=== PATIENT | female | born 1965 | race Caucasian/White ===

== ENCOUNTER 2016-11-23 05:30 | Inpatient (IN) ==
[2016-11-23] MEDS ORDERED: LR 1,000 ML IV SCH (05:40)
[2016-11-23] MEDS ORDERED: ACETAMINOPHEN 500 MG TABLET PO ONE (06:00)
[2016-11-23] MEDS ORDERED: NOZIN NASAL SWAB NAS ONE ×2 (06:00→13:17)
[2016-11-23] MEDS ORDERED: FAMOTIDINE PB 20 MG/50 ML BAG IV ONE (06:00)
[2016-11-23] MEDS ORDERED: METOCLOPRAMIDE 10mg/2ml INJECTION IVP ONE (06:00)
[2016-11-23] MEDS ORDERED: DEXAMETHASONE 4 MG/ML INJECTION IVP ONE (06:00)
[2016-11-23] MEDS ORDERED: MELOXICAM 15 MG TABLET PO ONE (06:00)
[2016-11-23] MEDS ORDERED: ONDANSETRON 4 MG/2 ML INJECTION IVP ONE (06:00)
[2016-11-23] MEDS ORDERED: LIDOCAINE 1% (10mg/ml) 10mL MDV SQ ONE (06:00)
[2016-11-23] MEDS ORDERED: VANCOMYCIN 1,000 MG INJECTION ONE (06:13)
[2016-11-23 06:17] VITALS: BMI 38.8
--- NOTE | 2016-11-23 06:37 | Anesthesia Preoperative Report ---
Anesthesia Preoperative Record - Date and Time Date: 11/23/16 Preoperative Diagnosis: Bilateral Primary Knee OA M17.0 NPO Since Date: 11/23/16 NPO Since Time: 00:00 Allergies/Adverse Reactions: Allergies Allergy/AdvReac Type Severity Reaction Status Date / Time Sulfa (Sulfonamide Allergy Severe RASH/HIVES Verified 11/23/16 05:46 Antibiotics) - Vital Signs Vital Signs: Temperature 98.3 F 11/23/16 06:15 Pulse Rate 74 11/23/16 06:15 Respiratory Rate 16 11/23/16 06:15 Blood Pressure 120/69 11/23/16 06:15 Pulse Oximetry 94 11/23/16 06:15 Oxygen Delivery Method Room Air Height and Weight: Height 1.65 m Weight 105.8 kg Body Mass Index 38.8 - Medications Inpatient Medications: Current Medications Epinephrine HCl 0.25 mg/Bupivacaine HCl 30 ml/Morphine Sulfate 15 mg/Ketorolac Tromethamine 60 mg/Sodium Chloride 65.25 mls @ 0 mls/hr OPSITE INTRAOP ONE; Per Protocol PRN Reason: Protocol Stop: 11/23/16 08:01 Tranexamic Acid 1,000 mg/ (Sodium Chloride) 110 mls @ 660 mls/hr IV INTRAOP ONE Stop: 11/23/16 07:09 Lactated Ringer's (Lactated Ringers) 1,000 mls @ 50 mls/hr IV .Q20H CRUZ Last Admin: 11/23/16 06:07 Dose: 50 mls/hr Sodium Chloride (Iv Flush) 10 - 80 ml IVF PRN PRN PRN Reason: [place] Home Medications: Home Medications Medication Instructions Recorded Confirmed Type ARIPiprazole [Abilify] 1 tab PO DAILY #90 04/06/16 10/27/16 History Prazosin HCl 1 - 2 tab PO HS PRN #60 04/06/16 11/23/16 History hydrOXYzine pamoate [Vistaril] 1 - 2 tab PO Q8H PRN #180 04/06/16 10/27/16 History ClonazePAM [Klonopin] 1 mg PO HS PRN 10/18/16 10/27/16 History Escitalopram [Lexapro] 20 mg PO DAILY 10/18/16 11/23/16 History Meloxicam [Mobic] 15 mg PO DAILY 10/18/16 11/22/16 History buPROPion HCl [Wellbutrin Xl] 300 mg PO DAILY 10/18/16 11/23/16 History Acetaminophen Sr [Tylenol 1,300 mg PO Q8HR PRN 10/27/16 11/23/16 History Arthritis] tramadol 50 mg tablet 50 mg PO Q6H PRN 10/27/16 11/22/16 History ALPRAZolam [Alprazolam ER] 0.5 mg PO Q1-2HR MDD 2 11/22/16 11/23/16 History Is Patient on Beta Almita?: No - Medical History Gastrointestional: Reports: Morbid Obesity - Surgical History GI Surgery/Treatments: Reports: Colonoscopy (Hx polyps) Musculoskeletal Surgery/Tx: Reports: Knee Arthroscopy (LEFT KNEE) Reproductive Surgery/Treatment: Reports: Hysterectomy, Hysteroscopy, Laparoscopy (ovarian cystectomy) Anesthesia Reactions: None Hx Family Anesthesia Reaction: No History of Motion Sickness: No - Social History Smoking Status: Current some day smoker Hx Chewing Tobacco Use: No Second Hand Exposure: No - Physical Exam Respiratory Exam: Present: lungs clear, bilateral breath sounds equal Cardiovascular Exam: Present: regular rate and rhythm - Airway Assessment Mallampati Score: II Neck Extension: fair Overall Assessment: no airway concerns - ASA ASA Score: 2 - Plan Anesthesia: General TIVA, General Inhalation Gases, Regional Block, Neuroaxial Regional/Trunk Block: Epidural - Discussion Discussion: Discussed risks/options/alternatives of anesthesia and questions answered. Patient consents. Nursing pain assessment noted. Present for Discussion: family member Attestation Statement: Prior to the delivery of any anesthetic medication, I examined the patient, developed the plan, obtained the patient's consent and discussed the risk and benefits of the procedure with the patient/guardian. - Additional Information Seen by Anesthesia: Yes
[2016-11-23] MEDS ORDERED: PROPOFOL 0 MG/0 ML VIAL IV ONE (06:43)
[2016-11-23] MEDS ORDERED: KETAMINE 500 MG/10 ML INJECTION ONE (06:43)
[2016-11-23] MEDS ORDERED: LIDOCAINE 2%/EPI 1:200,000 20ml SDV PF ONE ×2 (07:26→10:30)
[2016-11-23] MEDS ORDERED: MIDAZOLAM 2mg/2ml INJECTION ONE (07:27)
[2016-11-23] MEDS: TRANEXAMIC ACID 1,000 MG in NS 100 ML IV ONE ×4 (07:30→16:01)
[2016-11-23] MEDS: CEFAZOLIN 1 G INJECTION IVP ONE ×2 (07:30→15:32)
[2016-11-23] MEDS ORDERED: PROPOFOL 500 MG/50 ML VIAL IV ONE (08:31)
[2016-11-23] MEDS ORDERED: SALINE FLUSH 10ml SYRINGE IVF PRN (08:40)
[2016-11-23] MEDS ORDERED: PROPOFOL IV ONE (09:08)
[2016-11-23] MEDS ORDERED: PHENYLEPHRINE INJ 10 MG/ML VIAL IV ONE (09:39)
[2016-11-23] MEDS ORDERED: ROPIVACAINE 0.5% (5mg/ml) 30ml INJ ONE (10:30)
[2016-11-23] MEDS: EPINEPHrine 0.25 MG, BUPIVACAINE 0.25% PF 30 ML, MORPHINE SULFATE 15 MG, KETOROLAC INJ ... OPSITE ONE ×2 (10:35→16:02)
[2016-11-23] MEDS ORDERED: VANCOMYCIN 1,000 MG INJECTION IAR ONE (10:39)
[2016-11-23] MEDS ORDERED: PROPOFOL 20 ML ONE (10:54)
--- NOTE | 2016-11-23 11:00 | Operative Note ---
- Procedure Date of Admission: 11/23/16 Side: bilateral Preoperative Diagnosis: knee primary DJD Postoperative Diagnosis: Same as preoperative diagnosis. Operation: total knee arthroplasty (bilateral) Surgeon: Martha Raygoza MD Edge Kitter: ISABELL Bello Complications: None. Regional/Trunk Block: Epidural Peripheral Nerve Block: Saphenous-Right, Saphenous-Left Estimated Blood Loss: See Anesthesia Record. Fluids: Please see Anesthesia Record. Description of Procedure: Mrs. Serrano in both of her knees were identified and marked in the preoperative holding area. She was brought back to the operating suite. Epidural was placed in the preoperative holding area. Both lower extremity were prepped and draped in my normal sterile fashion. Timeout was performed. Both knees had a fixed varus deformity. We started with the left knee. An anterior midline incision followed by sub-vastus arthrotomy was performed. The tourniquet was not used until cementing. Hemostasis was obtained with electrocautery. Should severe disease in the medial and patellofemoral compartments. The patella was resurfaced to a size 32. A distal femoral osteotomy was then performed in 5 of valgus using intramedullary guide. The femur was sized at a for and rotation set using the epicondylar axis. Distal femoral cuts were performed with a 4-in-1 cutting block. She had large osteophytes which were removed. A proximal tibial cut was then made perpendicular to its long axis using an extramedullary guide. At this point remaining meniscus and osteophytes were removed and joint cocktail was injected throughout soft tissue. Trial components were placed with a 9 mm spacer. After larger medial release this allowed for full extension and flexion and the patella tracked well. The leg was then exsanguinated and the tourniquet inflated to 250 mmHg. The tibia was then stamped at a size 3 at the proper rotation. The bone was then prepared for cementing and [place] [employer] components were cemented into place and allowed to cure in extension. X3 Shelly was used. The tourniquet was then let down and hemostasis obtained with electrocautery. Betadine solution was used during the curing period for 3 minutes. 1 g of vancomycin powder was placed into the joint before the capsulotomy was repaired with #1 Vicryl. The subcutaneous tissue and skin with 2 -0 Vicryl and Monocryl. Dermabond was used on the skin. We then moved to the right knee. An anterior midline incision followed by medial parapatellar arthrotomy was performed. The tourniquet was not used until cementing. Hemostasis was obtained with electrocautery. The patella was resurfaced to a size 32. Again she had severe disease in the medial and patellofemoral compartments. Again she had large osteophyte formation around the femur medially as well as laterally and on the patella. A distal femoral osteotomy was then performed in 5 of valgus using intramedullary guide. The femur was sized at a 4 and rotation set using the epicondylar axis. Distal femoral cuts were performed with a 4-in-1 cutting block. A proximal tibial cut was then made perpendicular to its long axis using an extramedullary guide. At this point remaining meniscus and osteophytes were removed and joint cocktail was injected throughout soft tissue. Trial components were placed with a 9 mm spacer. This allowed for full extension and flexion and the patella tracked well. The leg was then exsanguinated and the tourniquet inflated to 250 mmHg. The tibia was then stamped at a size 3 at the proper rotation. The bone was then prepared for cementing and [place] [employer] components were cemented into place and allowed to cure in extension. The tourniquet was then let down and hemostasis obtained with electrocautery. Betadine solution was used during the curing period for 3 minutes. 1 g of vancomycin powder was placed into the joint before the capsulotomy was repaired with #1 Vicryl. I then left my home based assistant close the subcutaneous tissue and skin with 2-0 Vicryl and Monocryl. Dermabond was used on the skin. The drapes were then removed and she was taken to recovery room under the care of anesthesia.
[2016-11-23] MEDS: HYDROMORPHONE 2 MG/ML INJECTION IVP PRN ×2 (11:35→11:50)
--- NOTE | 2016-11-23 11:45 | Anesthesia Procedure Note ---
Peripheral Nerve Blockade - Procedure Physician: Bao Raygoza MD Date: 11/23/16 Discussion: Discussed risks/options/alternatives of anesthesia and questions answered. Patient consents. Nursing pain assessment noted. Block Start: 11:30 Block Stop: 11:40 Blocked Employed: Adductor Canal, Single Injection Indication: Post-Operative Pain Approach: Bilateral Sides Confirmed Position: Supine Patient: Consent, Risks/Benefits Discussed, Informed, Post Block Act. Discussed IV Sedation: No (post op) Initial Vital Signs: Temperature 98.3 F 11/23/16 06:15 Temperature Source Oral 11/23/16 06:15 Pulse Rate 78 11/23/16 06:15 Respiratory Rate 16 11/23/16 06:15 Blood Pressure 120/69 11/23/16 06:15 Blood Pressure Mean 86 11/23/16 06:15 Blood Pressure Position Sitting 11/23/16 06:15 Pulse Oximetry 94 11/23/16 06:15 Oxygen Delivery Method 11/23/16 06:15 Post Vital Signs: Temperature 98.3 F 11/23/16 06:15 Pulse Rate 74 11/23/16 06:15 Respiratory Rate 16 11/23/16 06:15 Blood Pressure 120/69 11/23/16 06:15 Pulse Oximetry 94 11/23/16 06:15 Oxygen Delivery Method Room Air Ultrasound Used?: Yes - Nerve Simulator Muscle Response: No Paresthesia/Pain: None - Injectate Ropivacaine (%): 0.5 Ropivacaine (mL): 15 (total 30 ml, given 15 ml per side) Was Epi 1:200,000 Used?: No Injection: Injection made incrementally with constant monitoring and aspiration every ml
--- NOTE | 2016-11-23 12:06 | Anesthesia Postoperative Note ---
- Date and Time Date: 11/23/16 Time: 12:02 - Status Patient Participated in Evaluation: Patient Participated in Person Vital Signs: Temperature 98.3 F 11/23/16 06:15 Pulse Rate 74 11/23/16 06:15 Respiratory Rate 16 11/23/16 06:15 Blood Pressure 120/69 11/23/16 06:15 Pulse Oximetry 94 11/23/16 06:15 Oxygen Delivery Method Room Air Respiratory Function: Airway Patent, Regular Respirations Cardiovascular Function: Regular Pulse Mental Status: Alert and Oriented Pain Intensity: 6 (treated with iv pain med) Hydration: IV Infusing Complications During Recover: None Apparent Post Anesthesia Care Notes: epidural removed, tip intact. Band aid applied, tolerated well. Noelle Cuadra CRNA - Follow-Up Instructions Instructions: Per Surgeon
--- NOTE | 2016-11-23 12:23 | History & Physical Update ---
- History and Physical Update Date: 11/23/16 Update: I evaluated this patient and found no changes in the history and clinical exam findings. The treatment plan and recommendations are also unchanged from the previous documentation.
--- NOTE | 2016-11-23 12:43 | XRay Report ---
Indication: postoperative image PROCEDURE: XR knee RT 2V: Encounter: Initial Comparison: None Findings: Postoperative changes of right total knee replacement are seen. There is expected postoperative subcutaneous gas. No evidence of hardware failure or acute fracture. No retained radiopaque surgical instruments or sponges. Overlying material causing artifact. Impression: New right total knee prosthesis without evidence of immediate complication. .
--- NOTE | 2016-11-23 12:43 | XRay Report ---
Indication: postoperative image PROCEDURE: XR knee LT 2V: Encounter: Initial Comparison: None Findings: Postoperative changes of left total knee replacement are seen. There is expected postoperative subcutaneous gas. No evidence of hardware failure or acute fracture. No retained radiopaque surgical instruments or sponges. Overlying material causing artifact. Impression: New left total knee prosthesis without evidence of immediate complication. .
[2016-11-23] MEDS ORDERED: DiphenhydrAMINE 50 MG/ML INJECTION IVP PRN (13:17)
[2016-11-23] MEDS ORDERED: DiphenhydrAMINE 25 MG CAPSULE PO PRN (13:17)
[2016-11-23] MEDS ORDERED: BuPROPion XL 300mg (24HR) TABLET PO SCH (13:17)
[2016-11-23] MEDS ORDERED: ESCITALOPRAM 20 MG TABLET PO SCH (13:17)
[2016-11-23] MEDS ORDERED: ASPIRIN *EC* 325 MG TABLET PO SCH (13:17)
[2016-11-23] MEDS ORDERED: ONDANSETRON 4 MG/2 ML INJECTION IVP PRN (13:17)
[2016-11-23] MEDS ORDERED: DOCUSATE SODIUM 100 MG CAPSULE PO SCH (13:17)
[2016-11-23] MEDS ORDERED: MELOXICAM 15 MG TABLET PO SCH (13:17)
[2016-11-23] MEDS ORDERED: POLYETHYL GLYCOL 3350 17gm PACKET PO SCH (13:17)
[2016-11-23] MEDS ORDERED: ClonazePAM 1 MG TABLET PO PRN ×2 (13:17→22:00)
[2016-11-23] MEDS: ACETAMINOPHEN 325 MG TABLET PO SCH ×3 (13:34→21:06)
[2016-11-23] MEDS: Oxycodone *IR* 5 MG TABLET PO PRN ×2 (13:34→21:07)
[2016-11-23] MEDS: NS 1,000 ML IV SCH (13:35)
[2016-11-23] MEDS: CEFAZOLIN 2 G in NS 100 ML IV SCH (16:13)
[2016-11-23] MEDS: NOZIN NASAL SWAB NAS SCH ×2 (16:13→21:05)
[2016-11-23] MEDS: ARIPiprazole 5 MG TABLET PO SCH (16:16)
[2016-11-23] MEDS: DOCUSATE SODIUM 100 MG CAPSULE PO SCH (21:06)
[2016-11-23] MEDS: ASPIRIN *EC* 325 MG TABLET PO SCH (21:06)
[2016-11-23] MEDS: SENNOSIDES 8.6 MG TABLET PO SCH (21:06)
[2016-11-24] MEDS: Oxycodone *IR* 5 MG TABLET PO PRN ×6 (00:07→23:01)
[2016-11-24] MEDS: CEFAZOLIN 2 G in NS 100 ML IV SCH (00:07)
[2016-11-24] MEDS: LORazepam 1 MG TABLET PO PRN ×2 (02:19→17:40)
[2016-11-24] MEDS: NS 1,000 ML IV SCH ×2 (04:35→19:33)
[2016-11-24] MEDS: NOZIN NASAL SWAB NAS SCH ×3 (06:40→21:34)
[2016-11-24] MEDS: HYDROMORPHONE 2 MG/ML INJECTION IVP PRN ×3 (07:10→11:56)
[2016-11-24] MEDS ORDERED: SENNOSIDES 8.6 MG TABLET PO PRN (07:39)
--- NOTE | 2016-11-24 08:20 | Orthopedic Progress Note ---
Date: Subjective/Severity of Illness: Petty is doing fairly well. Painful as expected. Most of her pain in in the thighs. She got some IV dilaudid this AM. She has been up with good tolerance. No CV or Resp complaints. The right knee drained some and Mepilex was changed. Orthopedic Objective PO Vital signs: Temperature 96.9 F 11/24/16 04:53 Pulse Rate 84 11/24/16 04:53 Respiratory Rate 16 11/24/16 04:53 Blood Pressure 115/69 11/24/16 04:53 Pulse Oximetry 95 11/24/16 04:53 Oxygen Delivery Method Room Air Oxygen Flow Rate 2 Height and Weight: Height 5 ft 5 in Weight 233 lb 3.985 oz Body Mass Index 38.8 - Constitutional General Appearance: Present: alert, no acute distress - Respiratory Exam Present: non-labored - Extremities Exam Extremities: Present: pulses intact. Absent: calf tenderness - Surgical Site Incision: Mepilex dressing intact, bloody drainage present (Mainly on the right knee. Small amount on the left.) - Neurological Exam Present: no deficits - Psychiatric Exam Present: alert, normal affect - Labs Result Diagrams: 11/24/16 04:01 11/24/16 04:01 Abnormal lab results 11/24/16 11/24/16 Range/Units 04:01 04:01 WBC 15.8 H (4.5-11.0) T/MM3 RBC 2.95 L (4.00-5.20) M/MM3 Hgb 9.0 L (12-16) GM/DL Hct 28.5 L (36-46) % BUN 19.0 H (7-17) MG/DL Glucose 114 H (65-110) MG/DL Calcium 8.2 L (8.4-10.2) MG/DL H & H 11/24/16 Range/Units 04:01 Hgb 9.0 L (12-16) GM/DL Hct 28.5 L (36-46) % Orthopedic Assessment and Plan (1) Primary osteoarthritis of both knees Status: Acute Assessment and Plan: Current anti-coagulation protocol for VTE prophylaxis. SCD's. PT/OT services to improve independent function. Discharge Planning per Case Management. Change dressing before discharge. I will reevaluate her for discharge later today. Hospital Course Summary Disclaimer: The visit summary below is not to be considered part of the above Progress Note.
[2016-11-24] MEDS: ARIPiprazole 5 MG TABLET PO SCH (08:44)
[2016-11-24] MEDS: BuPROPion XL 300mg (24HR) TABLET PO SCH (08:45)
[2016-11-24] MEDS: ACETAMINOPHEN 325 MG TABLET PO SCH ×4 (08:45→21:33)
[2016-11-24] MEDS: DOCUSATE SODIUM 100 MG CAPSULE PO SCH ×2 (08:45→21:34)
[2016-11-24] MEDS: ESCITALOPRAM 20 MG TABLET PO SCH (08:45)
[2016-11-24] MEDS: ASPIRIN *EC* 325 MG TABLET PO SCH ×2 (08:46→21:35)
[2016-11-24] MEDS: MELOXICAM 15 MG TABLET PO SCH (08:46)
[2016-11-24] MEDS: POLYETHYL GLYCOL 3350 17gm PACKET PO SCH (09:06)
[2016-11-24] MEDS ORDERED: MORPHINE SULFATE 4 MG SYRINGE IVP PRN (14:18)
[2016-11-24] MEDS: MORPHINE SULFATE 10 MG SYRINGE IVP PRN ×4 (17:40→23:02)
[2016-11-24] MEDS: SENNOSIDES 8.6 MG TABLET PO SCH (21:34)
[2016-11-25] MEDS: MORPHINE SULFATE 10 MG SYRINGE IVP PRN ×2 (01:32→07:07)
[2016-11-25] MEDS: Oxycodone *IR* 5 MG TABLET PO PRN ×3 (05:55→17:25)
[2016-11-25] MEDS: NS 1,000 ML IV SCH ×2 (08:40→19:49)
[2016-11-25] MEDS: NOZIN NASAL SWAB NAS SCH ×3 (08:40→22:17)
[2016-11-25] MEDS: BuPROPion XL 300mg (24HR) TABLET PO SCH (08:56)
[2016-11-25] MEDS: POLYETHYL GLYCOL 3350 17gm PACKET PO SCH (08:56)
[2016-11-25] MEDS: ARIPiprazole 5 MG TABLET PO SCH (08:56)
[2016-11-25] MEDS: DOCUSATE SODIUM 100 MG CAPSULE PO SCH ×2 (08:57→22:17)
[2016-11-25] MEDS: ESCITALOPRAM 20 MG TABLET PO SCH (08:57)
[2016-11-25] MEDS: MELOXICAM 15 MG TABLET PO SCH (08:57)
[2016-11-25] MEDS: ACETAMINOPHEN 325 MG TABLET PO SCH ×4 (08:57→22:16)
[2016-11-25] MEDS: ASPIRIN *EC* 325 MG TABLET PO SCH ×2 (08:57→22:16)
[2016-11-25] MEDS: LORazepam 1 MG TABLET PO PRN (14:37)
--- NOTE | 2016-11-25 16:27 | Orthopedic Progress Note ---
Date: Subjective/Severity of Illness: Petty is still having quite a bit of pain today. HR is elevated but she has no SOA, cough or dyspnea. She has not needed any Oxygen. HR elevation may be from low hgb / volume. She is not lightheaded or dizzy. Mobility has gone well. Orthopedic Objective PO Vital signs: Temperature 99.1 F 11/25/16 15:00 Pulse Rate 112 H 11/25/16 15:00 Respiratory Rate 18 11/25/16 15:00 Blood Pressure 110/60 11/25/16 15:00 Pulse Oximetry 93 11/25/16 15:00 Oxygen Delivery Method Room Air Oxygen Flow Rate 1 Height and Weight: Height 5 ft 5 in Weight 250 lb 0.067 oz Body Mass Index 38.8 - Constitutional General Appearance: Present: alert, no acute distress - Respiratory Exam Present: non-labored - Extremities Exam Extremities: Present: pulses intact. Absent: calf tenderness - Surgical Site Incision: Mepilex dressing intact - Neurological Exam Present: no deficits - Psychiatric Exam Present: alert, normal affect - Labs Result Diagrams: 11/25/16 04:14 11/25/16 04:14 Abnormal lab results 11/25/16 11/25/16 Range/Units 04:14 04:14 WBC 11.3 H (4.5-11.0) T/MM3 RBC 2.84 L (4.00-5.20) M/MM3 Hgb 8.7 L (12-16) GM/DL Hct 27.6 L (36-46) % Calcium 8.3 L (8.4-10.2) MG/DL H & H 11/24/16 11/25/16 Range/Units 04:01 04:14 Hgb 9.0 L 8.7 L (12-16) GM/DL Hct 28.5 L 27.6 L (36-46) % Orthopedic Assessment and Plan (1) Primary osteoarthritis of both knees Status: Acute Assessment and Plan: Will give some IV fluids for tachycardia. IV Toradol for added pain control. Hold Mobic since we are adding Toradol. Cont other meds for pain control Cont rehab. ASA for DVT coverage. Monitor labs. Hospital Course Summary Disclaimer: The visit summary below is not to be considered part of the above Progress Note.
[2016-11-25] MEDS: KETOROLAC 30 MG/ML INJECTION IVP PRN (18:39)
[2016-11-25] MEDS ORDERED: BISACODYL 10 MG SUPPOSITORY RECTALLY SCH (20:00)
[2016-11-25] MEDS: SENNOSIDES 8.6 MG TABLET PO SCH (22:16)
[2016-11-26 04:21] VITALS: RESP 16
[2016-11-26] MEDS: Oxycodone *IR* 5 MG TABLET PO PRN ×3 (04:55→15:57)
[2016-11-26] MEDS: NOZIN NASAL SWAB NAS SCH ×2 (05:51→14:00)
[2016-11-26] MEDS: BuPROPion XL 300mg (24HR) TABLET PO SCH (08:19)
[2016-11-26] MEDS: POLYETHYL GLYCOL 3350 17gm PACKET PO SCH (08:19)
[2016-11-26] MEDS: ARIPiprazole 5 MG TABLET PO SCH (08:19)
[2016-11-26] MEDS: ESCITALOPRAM 20 MG TABLET PO SCH (08:19)
[2016-11-26] MEDS: ASPIRIN *EC* 325 MG TABLET PO SCH (08:20)
[2016-11-26] MEDS: ACETAMINOPHEN 325 MG TABLET PO SCH ×2 (08:20→13:33)
[2016-11-26] MEDS: DOCUSATE SODIUM 100 MG CAPSULE PO SCH (08:20)
[2016-11-26] MEDS ORDERED: SALINE FLUSH 10ml SYRINGE ONE (08:33)
[2016-11-26] MEDS ORDERED: NS 100 ML ONE (08:33)
[2016-11-26] MEDS ORDERED: IOHEXOL 350mg/ml 100ml INJECTION ONE (08:33)
[2016-11-26] MEDS: KETOROLAC 30 MG/ML INJECTION IVP PRN (09:14)
--- NOTE | 2016-11-26 09:24 | CT Scan Report ---
Indication: Post op bilat TKA, Tachycardia, R/O PE. PROCEDURE: CT angio pulm emboli: Encounter: Initial Comparison: None Technique: Axial CT pulmonary angiographic phase images were performed through the chest after the administration of intravenous contrast. Coronal and Sagittal MIP reconstructed images were created and reviewed. Automated Exposure Control and Iterative Reconstruction dose reducing techniques were utilized. Contrast: Omnipaque 350 72 mL Findings: Pulmonary arteries: Exam is diagnostic to the segmental pulmonary arterial level. No filling defect identified to confirm a pulmonary embolus. Subsegmental pulmonary arteries cannot be adequately evaluated due to contrast bolus timing. Other findings: Small area of linear atelectasis or scarring in the right apex. The lungs are otherwise clear. No pneumonia, pleural effusion or pneumothorax. The central airways are patent. No axillary or mediastinal adenopathy. Heart size is normal. No pericardial effusion. The upper abdomen shows no acute findings. Adenomatous hyperplasia of the adrenal glands. Impression: No pulmonary embolus or acute intrathoracic disease process seen. .
--- NOTE | 2016-11-26 10:54 | Orthopedic Progress Note ---
Date: Subjective/Severity of Illness: Petty continues to have pain about level 5. No CP, cough or feeling SOA. Continues to be a little tachy. CTA was negative this AM. Orthopedic Objective PO Vital signs: Temperature 100.6 F H 11/26/16 08:00 Pulse Rate 94 11/26/16 08:00 Respiratory Rate 16 11/26/16 08:00 Blood Pressure 124/69 11/26/16 08:00 Pulse Oximetry 99 11/26/16 08:00 Oxygen Delivery Method Room Air Oxygen Flow Rate 1 Height and Weight: Height 5 ft 5 in Weight 255 lb 11.779 oz Body Mass Index 38.8 - Constitutional General Appearance: Present: alert, no acute distress - Respiratory Exam Present: non-labored - Extremities Exam Extremities: Present: pulses intact. Absent: calf tenderness - Surgical Site Incision: Mepilex dressing intact (x2 ), no drainage - Integumentary Exam Present: bruising (Medial distal thigh bilaterally. This is expected.) - Neurological Exam Present: no deficits - Psychiatric Exam Present: alert, normal affect - Labs Result Diagrams: 11/26/16 05:00 11/25/16 04:14 Abnormal lab results 11/26/16 Range/Units 05:00 WBC 11.4 H (4.5-11.0) T/MM3 RBC 2.57 L (4.00-5.20) M/MM3 Hgb 7.9 L (12-16) GM/DL Hct 24.8 L (36-46) % H & H 11/24/16 11/25/16 11/26/16 Range/Units 04:01 04:14 05:00 Hgb 9.0 L 8.7 L 7.9 L (12-16) GM/DL Hct 28.5 L 27.6 L 24.8 L (36-46) % Orthopedic Assessment and Plan (1) Primary osteoarthritis of both knees Status: Acute Assessment and Plan: CTA negative for PE Will cover with Lovenox in place of Aspirin due to slow progression with therapy and BMI > 40. Cont PT / OT. CM for discharge planning. Will recheck today after working with PT. Hospital Course Summary Disclaimer: The visit summary below is not to be considered part of the above Progress Note.
[2016-11-26] MEDS ORDERED: ENOXAPARIN 40 MG/0.4 ML INJECTION SQ SCH (11:00)
[2016-11-26] MEDS: NS 1,000 ML IV SCH (14:00)
--- NOTE | 2016-11-26 14:09 | Discharge Summary ---
Orthopedic Discharge Info Date of admission: 11/23/16 05:30 Primary care physician: Alejo Hurtado DO Attending Physician: Bao Raygoza MD Consults: 11/23/16 05:25 Consult to Anesthesiology [CONS] Routine Consulting Provider: ISABELL Hoang Reason For Exam: Preoperative Assessment 11/23/16 13:17 Case Management Consult [CONS] Routine Reason For Exam: Discharge Planning DME-Walker [CONS] Routine Height: 5 ft 5 in Weight: 233 lb 3.985 oz Comment: change dressing in 2 weeks Total Joint Outpatient Therapy [CONS] Routine Comment: change dressing in 2 weeks - Discharge Diagnosis (1) Primary osteoarthritis of both knees Status: Acute - Procedures Procedures: Bilateral TKA 11/23/16. - Laboratory Result Diagrams: 11/26/16 05:00 11/25/16 04:14 Laboratory: Abnormal lab results 11/26/16 Range/Units 05:00 WBC 11.4 H (4.5-11.0) T/MM3 RBC 2.57 L (4.00-5.20) M/MM3 Hgb 7.9 L (12-16) GM/DL Hct 24.8 L (36-46) % H & H 11/24/16 11/25/16 11/26/16 Range/Units 04:01 04:14 05:00 Hgb 9.0 L 8.7 L 7.9 L (12-16) GM/DL Hct 28.5 L 27.6 L 24.8 L (36-46) % Orthopedic Discharge HPI - HPI Comments This patient was admitted for elective surgical tx of end stage degenerative joint disease that failed to respond to conservative treatment. Further details of this is found in the admission H&P. Orthopedic Hospital Course Hospital course: 11/26/16 14:04 After appropriate preoperative clearance and signing of operative consent, the patient was given IV antibiotics, according to orthopedic protocol. The patient was taken to the operating room and underwent elective bilateral total knee arthroplasty on 11/23/[address] Raygoza. Following surgery, antibiotics were discontinued less than 24 hours according to joint protocol. Aspirin was initiated but later switched to Lovenox and SCDs added for DVT prevention. She will continue SQ Lovenox x 30 days. The dressing was clean, dry, and intact at discharge. She did have a little drainage from the right knee and several heather were placed to control any seeping. Pain control was obtained via multimodal approach. Bowel motivation addressed with scheduled and PRN medications. Early mobilization was initiated through PT services. Discharge arrangements made by a collaborative effort between the patient and Case Management. Petty developed a tachycardia with HR mainly in the 100's. A CT-angiogram was performed and was negative for PE. IV fluid volume was replaced and pain medicine adjusted for improved control. Her Oxygen saturations remained normal. She is using I.S. Will continue to monitor her HR at home. Follow-up is scheduled in 2-3 weeks. Discharge instructions given by orthopedic providers and nursing staff at discharge. Discharge condition was good. Ongoing care required?: Yes - Postoperative Anemia patient received IVF, labs monitored daily, no intervention required, HGB drop- acceptable - Leukocytosis due to preoperative IV Decadron, due to surgical stress response - Other Postoperative Events Tachycardia thought to be due to pain and blood loss. IV fluids replaced. CT- angiogram was neg for PE. Discharge Plan - Med Rec/Dispo Referrals/Follow Up: Bao Raygoza MD [Physician] - 12/08/16 1:00 pm (Staple removal with Dr Raygoza) [facility] Instructions: [facility] [place] [facility] General Instructions, [facility] [place] Ortho Postop Instructions Additional Instructions: [facility] ON 11/29/2016 AT 10:45AM FOR PHYSICAL THERAPY HTIEN. PHONE Prescriptions: New Docusate Sodium [Colace] 100 mg PO BID capsule Enoxaparin Sodium [Lovenox] 40 mg SQ DAILY 30 Days Oxycodone *Ir* [Roxicodone *Ir*] 5 - 15 mg PO Q3H PRN #60 tablet PRN Reason: Breakthrough Pain PEG 3350 17gm PACKET [Miralax] 17 gm PO DAILY packet Acetaminophen [Tylenol] 650 mg PO QID tablet LORazepam [Ativan] 1 mg PO TID PRN #30 tablet PRN Reason: Agitation/Pain Continue hydrOXYzine pamoate [Vistaril] 1 - 2 tab PO Q8H PRN #180 PRN Reason: Anxiety Prazosin HCl 1 - 2 tab PO HS PRN #60 PRN Reason: Sleep ClonazePAM [Klonopin] 1 mg PO HS PRN PRN Reason: Anxiety buPROPion HCl [Wellbutrin Xl] 300 mg PO DAILY Meloxicam [Mobic] 15 mg PO DAILY Escitalopram [Lexapro] 20 mg PO DAILY ARIPiprazole [Abilify] 1 tab PO DAILY #90 Acetaminophen Sr [Tylenol Arthritis] 1,300 mg PO Q8HR PRN PRN Reason: Pain ALPRAZolam [Alprazolam ER] 0.5 mg PO Q1-2HR MDD 2 - Disposition 01 Discharged Home, Self-Care
[2016-11-26 16:43] VITALS: BP 108/65; PULSE 96; TEMP 97.4; O2SAT 98
== END 2016-11-26 16:10 | disposition home or self-care (01) | DRG 462 ==
LOC: SRG 05:30
PROVIDERS: ADMIT Orthopaedic Surgery; ATTEND Orthopaedic Surgery